=== PATIENT | female | born 1950 | race Caucasian/White ===

== ENCOUNTER → 2018-03-29 | Outpatient (CLI) | payer OTHER | LOC: ULTRA 13:26 | DX: N88.8 Other specified noninflammatory disorders of cervix uteri (principal) ==

== ENCOUNTER → 2018-04-07 | Outpatient (CLI) | payer OTHER ==
[~2018-04-07] VITALS: Ht 175.3 cm; Wt 79.4 kg
[~2018-04-07] MED LIST: ASPIR 8181 MG PO; CENTRUM SILVER1 EAC4 PO; PROTANDEM PO; ST. JOHN'S WOR300 MG PO; VITAMIN B-625 MG PO
--- NOTE | ~2018-04-07 | PATH ---
[facility] [place] [address] PATHOLOGY RPT PROCEDURE Name: CAMILLE SYED Afua Room #: REG ELAINE Neumann#: [id number] Admission: 04/07/18 Date of : 54 Discharge: Report #: [id number] Path Case #: [id number] [facility] Accession Number: [id number] . 01 Material submitted: . PART A: BX OF EROSIONS ILEUM PART B: BX OF POLYP @ 40CM . 01 Clinical history: . Pre-OP DX: Screening Post-OP DX: Colon polyp, hemorrhoid, erosions of ileum . 02 Diagnosis: A. "Bx of erosions ileum r/o IBD," biopsy: - Small bowel mucosa with reactive/regenerative changes and chronic active ileitis, mild activity; no dysplasia seen. (see comment) . B. "Bx of polyp at 40 cm," biopsy: - Tubular adenoma; no high-grade dysplasia. QRQ/04/08/2018 . 02 Comment: Within specimen A, the pattern of inflammation is non-specific. The differential diagnosis includes infectious ileitis, drug-induced, and chronic idiopathic inflammatory bowel disease. Clinical and endoscopic correlation is required. (CLW:; 04/08/18) . 02 Electronically signed: . Daniella Segovia MD, Pathologist NPI- [id number] . 01 Gross description: . A. Received in formalin labeled "Camille Syed, BX of erosions ileum, rule out IBD," are multiple segments of colin soft tissue measuring 2.2 x 0.8 x 0.2 cm in aggregate. The specimen is filtered and submitted entirely in cassette A1. . B. Received in formalin labeled "Camille Syed BX of polyp at 40 cm," are 2 segments of colin soft tissue measuring 0.8 x 0.3 x 0.2 cm in aggregate dimensions and ranging from 0.3 to 0.6 cm in maximum dimension. The specimen is submitted entirely in cassette B1. (TSD; 04/07/2018) TOB/TOB . 02 Pathologist provided ICD-10: D12.6, K52.9 [place] [address] PATHOLOGY RPT PROCEDURE Name: CAMILLE SYED Room #: REG ELAINE Neumann#: [id number] Admission: 04/07/18 Date of : 54 Discharge: Report #: [id number] Path Case #: [id number] . 02 CPT . 871263, [id number] Performed at: [address], [place], [place] [id number] MD Rc Gray MD Phone: [phone] Performed at: [address] [id number] MD Kierra Helms MD Phone: [phone]
--- NOTE | ~2018-04-07 | P ---
[facility] [place] [address] PROCEDURE REPORT Name: JOSE MANUEL SYED Room #: REG [facility]#: [id number] Admission: 04/07/18 Attend Phys: Temo Shaikh MD Discharge: Date of : 54 Report #: [id number] THIS REPORT FOR: //name// CC: Temo Meeks MD DATE OF SERVICE: 04/07/2018 BRIEF HISTORY: The patient is a 67-year-old woman for average-risk screening colonoscopy. PREOPERATIVE DIAGNOSIS: Average-risk screening colonoscopies. POSTOPERATIVE DIAGNOSES: 1. Diminutive polyp, 40 cm. 2. Erosions in distal ileum. 3. Moderate internal hemorrhoids. MEDICATIONS: Deep sedation with propofol per anesthesia. SPECIMEN: 1. Biopsies of distal ileum. 2. Polyp at 40 cm. ESTIMATED BLOOD LOSS: 3 mL. PROCEDURE: Colonoscopy to cecum and terminal ileum with biopsy. FINDINGS: Prior to propofol sedation, procedure of colonoscopy was discussed with the patient as well as potential risks and its complications. She indicates she understands and desires to proceed. DESCRIPTION OF PROCEDURE: With the patient in left lateral decubitus position, digital examination was completed which revealed no abnormalities. Subsequently, the Olympus video colonoscope was introduced in the rectum, advanced under direct vision to the cecum. This was done with minimal difficulty. The cecum was identified by the ileocecal valve and the appendiceal orifice. I was able to visualize the distal segment of the distal ileum. It was noted she had multiple scattered punctate erosions, no deep ulcers were seen. No strictures or masses were seen. The intervening mucosa was normal. It was noted that on a colonoscopy 5 years ago, she had erosions in this area. Multiple biopsies were obtained. At that point, the scope was slowly withdrawn and careful circumferential views were obtained including retroflexion of the scope in the ascending colon. Upon slow withdrawal of the scope, the prep was noted to be good. The mucosa was within normal limits, normal vascular pattern, [facility] [address] [place] [address] PROCEDURE REPORT Name: SYEDJOSE MANUEL Afua Room #: REG [facility].#: [id number] Admission: 04/07/18 Attend Phys: Temo Shaikh MD Discharge: Date of : 54 Report #: [id number] and normal light reflex. As we withdrew the scope, she was noted to have normal mucosa. No abnormalities were noted until the sigmoid colon was reached and at 40 cm, a diminutive polyp was seen and removed by biopsy. The scope was further withdrawn and no additional neoplastic changes were seen. No other mucosal changes were seen. Scope was withdrawn in the rectum. Upon retroflexion, multiple moderate internal hemorrhoids were seen. The scope was withdrawn. The patient tolerated the procedure well. CONDITION OF THE PATIENT UPON DISCHARGE: Following procedure, the patient was drowsy, arousable and conversant and will be discharged to home when fully ambulatory. INSTRUCTIONS TO THE PATIENT AND FAMILY AT THE TIME OF DISCHARGE: One small polyp identified and removed. We will follow up on the pathology. This is an adenoma, she is to return in 5 years. If not, then 10 years would be indicated. Once again, she was found to have some erosions in the distal ileum. She has been asymptomatic. We will follow up on the path. However, concern would be that she may have early inflammatory bowel disease. We will follow up on biopsies. I will also have her return to the office to discuss consideration and further workup for inflammatory bowel disease, which may be indicated. She will return to the care of Dr. Geremias Meeks and return to see me as needed. Withdrawal time from the cecum was 14 minutes 18 seconds. <ELECTRONICALLY SIGNED> By: Temo Shaikh MD 04/08/18 [id number] Temo Shaikh MD /nt
== END | disposition home or self-care (01) ==
LOC: GI 06:56
DX: Z12.11 Encounter for screening for malignant neoplasm of colon (principal); D12.5 Benign neoplasm of sigmoid colon; K63.3 Ulcer of intestine; K64.8 Other hemorrhoids; K52.9 Noninfective gastroenteritis and colitis, unspecified; K21.9 Gastro-esophageal reflux disease without esophagitis; M19.90 Unspecified osteoarthritis, unspecified site; Z87.891 Personal history of nicotine dependence; Z87.11 Personal history of peptic ulcer disease; Z88.8 Allergy status to other drugs, medicaments and biological substances; Z79.82 Long term (current) use of aspirin; Z86.79 Personal history of other diseases of the circulatory system; Z98.890 Other specified postprocedural states
CPT/HCPCS: 62110; 62900